=== PATIENT | male | born 1990 | race Caucasian/White ===

== ENCOUNTER 2021-09-23 17:11 | Emergency (ER) | payer BC, SELFPAY ==
[2021-09-23 17:15] VITALS: BP 131/74; PULSE 78; RESP 14; TEMP 36.4; O2SAT 100
--- NOTE | 2021-09-23 17:15 | DI.RAD_ITS ---
Exam(s) XR FINGER RT MIDDLE EXAM: XR FINGER RT MIDDLE CLINICAL HISTORY: Injury, R/O Fracture. TECHNIQUE: 2D digital imaging was performed. COMPARISON: No exams were available for comparison FINDINGS: There is a soft tissue laceration at the tuft. There it has been amputation of a portion of the tuft of the distal phalanx. No additional fractures. No foreign body. IMPRESSION: Open tuft fracture. DATA REPOSITORY: RADIATION DOSE DELIVERED:
--- NOTE | 2021-09-23 17:28 | ED.GENADUL_ITS ---
Discharge Plan Disposition Patient Disposition: HOME Condition: Stable Discharge Details Clinical Impression: Open fracture of tuft of distal phalanx of finger Primary Care Provider: Nalini Watt ED Provider: Pearl Madison Home Meds and New Rx's Prescriptions: New cephalexin 500 mg tablet 500 mg PO BID 7 Days Qty: 14 RF: 0 No Action Chantix Starting Month Box 0.5 mg (11)- 1 mg (42) tablets,dose pack See Rx Instructions PO PER PKG DIR Qty: 53 RF: 0 Discharge Instructions Instructions: Finger Fracture (ED) Additional Instructions: Keep the dressing on for the next 48 to 72 hours. If there is bleeding through the dressing apply pressure for approximately 15 minutes. If bleeding does not stop please return to the ER. Rest, ice, compression, elevation. Take the antibiotic twice daily as directed. You were given the first antibiotic here in the department tonight. The numbing medication will wear off in approximately 2 to 4 hours. Please take Tylenol or Ibuprofen with food every 4-6 hours as needed for pain and swelling. Please follow-up with Ortho if needed. Referrals: Jerrell Willard MD [ [facility] STAFF PHYSICIAN] - 1 week (Open tuft fracture right middle finger) Discharge Data Discharge Date/Time-TO BE ENTERED AT DEPARTURE: 09/23/21 18:37 Medical Decision Making 30-year-old male presents to the ER status post right middle finger laceration with a table saw which occurred just prior to arrival. Patient reports that he was adjusting the wooden his finger went and saw. He has sensation intact d istally to the injury. There is a lacerated nail and nailbed to the tip of his right middle finger noted. There is a venous ooze. He has full range of motion to the digit no other injuries noted. Last tetanus was 2017. 1734: Silver Nitrate applied to avulsed nailbed area to control bleeding. 4-s ided Digital block performed, anesthesia achieved. Will obtain imaging to rule out fracture/foreign body. Will perform wound care with irrigation after x-ray. At this time does not appear to be a repairable laceration however I will examine him more thoroughly after x-ray. Imaging protocol: XR Right fingers. Views: Minimum 2 views. Total images: 3 COMPARISON: No relevant prior studies available. FINDINGS: Bones/joints: There is a transverse fracture through the distal aspect of the 3rd distal phalanx. Moderate displacement. No dislocation. Soft tissues: No unexpected radiopaque foreign body. IMPRESSION: 1. Middle finger tuft fracture. 2. No unexpected radiopaque foreign body. Thank you for allowing us to participate in the care of your patient. Dictated and Authenticated by: Katie Vazquez MD Normal wound irrigated with sterile normal saline and scrubbed with chlorhexidine. Patient tolerated well. With some additional venous ooze noted status post silver nitrate. Attempted an additional silver nitrate cauterization. Bacitracin and Telfa gauze applied and tube gauze. Instructed patient to keep on until the next [address] patient on cephalexin to treat empirically for an open fracture. Patient given the first dose here. HPI General Mode of arrival: ambulatory . Date/Time Provider Initiated Documentation: 09/23/21 17:17 . Limitations to Documentation: no limitations . Information obtained by: patient and RN notes reviewed . HPI Narrative: 30-year-old male presents to the ER status post right middle finger laceration with a table saw which occurred just prior to arrival. Patient reports that he was adjusting the wooden his finger went and saw. He has sensation intact distally to the injury. There is a lacerated nail and nailbed to the tip of his right middle finger noted. There is a venous ooze. He has full range of motion to the digit no other injuries noted. Last tetanus was 2016. Related Data Home Medications Medication Instructions Recorded Confirmed varenicline 0.5 mg (11)-1 mg (42) See Rx Instructions PO PER PKG DIR 08/17/19 09/07/19 tablets in a dose pack #53 dose pk cephalexin 500 mg PO BID 7 Days #14 tab 09/23/21 Previous Rx's Medication Instructions Recorded varenicline 0.5 mg (11)-1 mg (42) See Rx Instructions PO PER PKG DIR 08/17/19 tablets in a dose pack #53 dose pk cephalexin 500 mg PO BID 7 Days #14 tab 09/23/21 Allergies Allergy/AdvReac Type Severity Reaction Status Date / Time No Known Allergies Allergy Verified 09/07/19 14:29 General Stated Complaint: Laceration ERROL: 3 Review of Systems All systems reviewed & are unremarkable except as noted in HPI and below Integumentary/Breasts Skin/Breast: Reports as per HPI and Reports wounds PFSH All Active Problems (Updated 09/23/21 @ 18:29 by Pearl Madison) Open fracture of tuft of distal phalanx of finger (Acute) Upper back pain (Acute) Tobacco dependence (Acute) Family History Mother No problems noted. Father No problems noted. Brother No problems noted. Maternal Grandfather , age 84 Alcohol abuse Throat cancer Paternal Grandfather Diabetes Hyperlipidemia Hypertension Stroke Maternal Grandmother , age 799 Lung cancer Throat cancer Diabetes Paternal Grandmother Dementia Social History Smoking/Tobacco Use Status: Current every day Tobacco Type: cigarettes Quit status: considering quitting Smoking risk assessment performed?: Yes Alcohol Intake: current Alcohol Intake frequency: a few times a month Alcohol type: beer Drug use: Daily Substance use type: marijuana Caregiver/Support person: No Household members: significant other Housing: house Communication Needs: None Pets and animals: Yes Pets and animals: dog(s) Sexually active: Yes Do you think of yourself as: straight/heterosexual Current gender identity: male What is your relationship status?: living with partner How often do you talk on the phone with friends or family?: twice per week How often do you get together with friends or relatives?: once per week How often do you attend mormon or christianity services?: decline to answer Do you belong to any clubs or organized social groups?: no Panel score (0-1 are the most socially isolated patients): 2 What type of physical activity do you participate in: other Details: work in the [employer] Frequency: daily Angie/Congregational: None Special angie needs: No Seatbelt use: sometimes Helmet use: Yes Helmet use: sometimes Drive intox or ride w/intox route cdl driver: No Do you feel safe at home: Yes Do you feel safe in your relationship?: Yes Exam Extrem Right upper extremity: hand Details: laceration 3rd digit dorsal aspect distal Details: Y-shaped, actively bleeding and involving subcutaneous tissue Hand/finger images: 1. V-shaped laceration noted to the nail and nailbed. 2. Small 0.5 cm laceration noted Course Vital Signs Vital signs: Vital Signs Temperature 36.4 C L 09/23/21 17:15 Pulse 78 09/23/21 17:15 Respiratory Rate 14 09/23/21 17:15 Blood Pressure 131/74 09/23/21 17:15 Pulse Oximetry 100 09/23/21 17:15 Temperature 36.4 C L 09/23/21 17:15 Temperature Source Skin 09/23/21 17:15 Pulse 78 09/23/21 17:15 Respiratory Rate 14 09/23/21 17:15 Respiratory Effort 09/23/21 17:20 Blood Pressure 131/74 09/23/21 17:15 Blood Pressure Position Supine 09/23/21 17:15 Pulse Oximetry 100 09/23/21 17:15 Oxygen Delivery Method Room Air 09/23/21 17:15 Oxygen Flow Rate 0 09/23/21 17:15 Pain Level 4 09/23/21 17:24 Procedures Nerve Block Nerve Block 1: Time out performed: No Local Anesthetic: Lidocaine 1% and Bupivicaine 0.5% Amount of anesthesia used (mL): 4 Side: right Nerve Blocks: digital Procedure Successful: Yes Patient Tolerated Procedure: well and no complications Complications: none PAWSS Have you Been Recently Intoxicated or Drunk Within the Last 30 days?: No Have you Ever Experienced Previous Episodes of Alcohol Withdrawal?: No Have you ever Experienced Withdrawal Seizures?: No Have you ever Experienced Delirium Tremens(DT)s?: No Have you ever undergone Alcohol Rehabilitation Treatment (i.e, inpt ot outpatient treatment programs)?: No Have you ever Experienced Blackouts?: No Have you ever Combined Alcohol with other Downers within the last 90 days?: No Have you ever Combined Alcohol with any other Substance of Abuse during the last 90 days?: No Positive Blood Alcohol level on Presentation? [PCS.BAL]: No Evidence of Increased Autonomic Activity (i.e. HR>120, tremor, sweating, agitation, nausea)?: No Result: 0
[2021-09-23] MEDS: Silver Nitrate Stick 1 EACH TP (17:35)
--- NOTE | 2021-09-23 17:53 | NUR.NOTE ---
Nursing Note: Pt ambulatory to DI w/tech, no new complaints.
--- NOTE | 2021-09-23 17:57 | NUR.NOTE ---
Nursing Note:Pt return from DI, no new complaints.
--- NOTE | 2021-09-23 18:07 | DI.VRAD_ITS ---
PROCEDURE INFORMATION: Exam: XR Right Finger(s) Exam date and time: 09/23/2021 5:59 PM Age: 30 years old Clinical indication: Injury or trauma; Laceration; Right; Middle finger; Injury details: R/O FX. Saw injury TECHNIQUE: Imaging protocol: XR Right fingers. Views: Minimum 2 views. Total images: 3 COMPARISON: No relevant prior studies available. FINDINGS: Bones/joints: There is a transverse fracture through the distal aspect of the 3rd distal phalanx. Moderate displacement. No dislocation. Soft tissues: No unexpected radiopaque foreign body. IMPRESSION: 1. Middle finger tuft fracture. 2. No unexpected radiopaque foreign body. Dictated and Authenticated by: Katie Vazquez MD. Ordering:RADHA Kang MD
[2021-09-23] MEDS: Cephalexin 500 MG CAP, 2 CAPS/BTL PO (18:35)
[2021-09-23] MEDS: Cephalexin 500 MG CAP PO (18:35)
== END 2021-09-23 18:37 | disposition home or self-care (01) ==
PROVIDERS: Emergency Provider Registered Nurse Emergency; PCP Nurse Practitioner
DX: S62.632B Displaced fracture of distal phalanx of right middle finger, initial encounter for open fracture (principal); W31.2XXA Contact with powered woodworking and forming machines, initial encounter
CPT/HCPCS: 64450; 99283; 73140